=== PATIENT | female | born 2000 | race Caucasian/White ===

== ENCOUNTER 2020-01-09 16:06 | Emergency (ER) | payer OTHER ==
[~2020-01-09] VITALS: Ht 170.2 cm; Wt 86.0 kg
[2020-01-09 16:07] VITALS: BP 141/92
[2020-01-09] MEDS ORDERED: [UNRECOGNIZED DRUG - OTHER] (16:11)
[2020-01-09] MEDS ORDERED: ACET-683 PO (16:11)
[2020-01-09] MEDS ORDERED: AUGM875T28 PO (16:29)
[2020-01-09] MEDS ORDERED: IBUPROFEN 800 MG TAB PO ONE (16:30)
[2020-01-09] MEDS ORDERED: AUGMENTIN 875 MG TAB PO ONE (16:30)
== END 2020-01-09 16:35 | disposition home or self-care (01) ==
LOC: EDBD 16:06 → M ED 16:06
DX: K04.7 Periapical abscess without sinus (principal)